=== PATIENT | female | born 1995 | race African-American/Black ===

== ENCOUNTER 2018-07-29 13:29 | Day surgery (SDC) | payer SELFPAY ==
[~2018-07-29] VITALS: Ht 165.1 cm; Wt 95.0 kg
[2018-07-29 14:20] VITALS: BP 118/70
[2018-07-29] MEDS ORDERED: DEXT 5%/LACTATED RINGERS 1,000 ML IV ONE (14:45)
[2018-07-29 15:27] LABS: EOSINOPHILS % 11.5 % (0.0-5.0); HEMOGLOBIN. 13.9 g/dL (12.0-16.0); LYMPHOCYTES % 20.9 % (20.0-50.0); MEAN CORPUSCULAR HEMOGLOBIN 25.9 pg (28.0-32.0); MEAN CORPUSCULAR VOLUME 78.1 fL (81.0-99.0); MEAN PLATELET VOLUME 9.8 fl (7.4-10.4); MONOCYTES % 9.6 % (2.0-8.0); PLATELET 260 x1000/uL (130-400); RED BLOOD CELL COUNT 5.38 mill/uL (4.2-5.4); RED CELL DISTRIBUTION WIDTH 14.7 % (11.6-14.6)
[2018-07-29 15:31] LABS: CHLORIDE 107 mEq/L (98-107)
[2018-07-29 15:46] LABS: HCG SCREEN POSITIVE
[2018-07-29 15:51] LABS: PARTIAL THROMBOPLASTIN TIME 27.5 sec (23.4-31.0); PROTHROMBIN TIME 10.4 sec (9.1-11.1)
[2018-07-29 16:03] LABS: CLARITY URINE CLOUDY (CLEAR); COLOR URINE YELLOW (YELLOW); KETONES URINE NEGATIVE (NEGATIVE); LEUKOCYTE ESTERASE URINE NEGATIVE (NEGATIVE); NITRITE URINE NEGATIVE (NEGATIVE); OCCULT BLOOD URINE NEGATIVE (NEGATIVE); PROTEIN URINE NEGATIVE (NEGATIVE); SPECIFIC GRAVITY URINE 1.017 (1.005-1.030); UROBILINOGEN URINE 0.2 E.U./dL (0.2-1.0)
[2018-07-29] MEDS ORDERED: MIDAZOLAM HCL 2 MG/2 ML VIAL ONE (17:02)
[2018-07-29] MEDS ORDERED: ROCURONIUM BROMIDE 10MG/ML VIAL 5ML IV ONE (17:02)
[2018-07-29] MEDS ORDERED: GLYCOPYRROLATE 0.2 MG/ML 2ML VIAL ONE (17:02)
[2018-07-29] MEDS ORDERED: NEOSTIGMINE METHYLSULFATE 1MG/ML 10 ML VIAL ONE (17:02)
[2018-07-29] MEDS ORDERED: FENTANYL CITRATE/PF 50MCG/ML 2ML VIAL ONE ×4 (17:02→18:11)
[2018-07-29] MEDS ORDERED: DEXAMETHASONE 4MG/ML 1ML VIAL ONE (17:03)
[2018-07-29] MEDS ORDERED: CEFAZOLIN SODIUM 1000MG/VIAL ONE (17:03)
[2018-07-29] MEDS ORDERED: SODIUM CHLORIDE 0.9% 10ML VIAL ONE (17:03)
[2018-07-29] MEDS ORDERED: SUCCINYLCHOLINE CHLORIDE 200MG/10ML IV ONE (17:03)
[2018-07-29] MEDS ORDERED: ONDANSETRON HCL 4MG/2ML INJ ONE (17:03)
[2018-07-29] MEDS ORDERED: METOCLOPRAMIDE HCL 10MG/2ML VIAL ONE (17:03)
[2018-07-29] MEDS ORDERED: PROPOFOL 200MG/20ML VIAL IV ONE (17:08)
[2018-07-29] MEDS ORDERED: ALBU90AE IH (17:25)
[2018-07-29] MEDS ORDERED: PNV1TABL76 PO (17:25)
[2018-07-29] MEDS ORDERED: SKIN ADHESIVE 0.7 GM EA TOP ONE (18:46)
[2018-07-29] MEDS ORDERED: BUPIVACAINE HCL/EPINEPHRINE 0.5%/0.0005 30ML ONE (18:47)
== END 2018-07-29 21:00 | disposition home or self-care (01) ==
LOC: ER 13:29 → UNDOADMIN 14:54 → ORIP 14:54 → EDBEDREQ 14:57 → OR 15:21
PROVIDERS: ATTEND Obstetrics & Gynecology Obstetrics
DX: O00.102 Left tubal pregnancy without intrauterine pregnancy (principal); J45.909 Unspecified asthma, uncomplicated
CPT/HCPCS: 36415; 59151; 80053; 81003; 84703; 85025; 85610; 85730; 86850; 86900; 86901; 88305; 99285; G0168; J0171; J0330; J0690; J1100; J2250; J2405; J2704; J2710; J2765; J3010; J3490; J7121

== ENCOUNTER 2018-10-29 11:30 | Emergency (ER) | payer OTHER ==
[~2018-10-29] VITALS: Ht 162.6 cm; Wt 100.0 kg
[~2018-10-29 11:30] MED LIST: ALBU90AE IH; PNV1TABL76 PO
[2018-10-29] MEDS ORDERED: OXYCODONE HCL/ACETAMINOPHEN 5/325MG TABLET PO ONE (12:00)
[2018-10-29 13:57] VITALS: BP 116/82
== END 2018-10-29 18:49 | disposition home or self-care (01) ==
LOC: ER 11:30
DX: M79.18 Myalgia, other site (principal); J45.909 Unspecified asthma, uncomplicated; V43.52XA Car driver injured in collision with other type car in traffic accident, initial encounter; Y93.89 Activity, other specified; Y92.488 Other paved roadways as the place of occurrence of the external cause
CPT/HCPCS: 71045; 73552; 81025; 99284